=== PATIENT | female | born 1995 | race Caucasian/White ===

== ENCOUNTER 2023-03-04 11:13 | Day surgery (SDC) | payer OTHER ==
[2023-03-03 12:55] VITALS: BMI 21.9
[2023-03-04 13:39] VITALS: RESP 18; TEMP 98
[2023-03-04 13:40] VITALS: BP 98/74; PULSE 95
== END 2023-03-04 13:48 | disposition home or self-care (01) ==
LOC: FASU-ENDO 11:13
PROVIDERS: ATTEND Internal Medicine Gastroenterology
PROC: 0DDL8ZX Extraction of Transverse Colon, Via Natural or Artificial Opening Endoscopic, Diagnostic (ICD-10-PCS; 2023-03-04)
PROC: 0DDN8ZX Extraction of Sigmoid Colon, Via Natural or Artificial Opening Endoscopic, Diagnostic (ICD-10-PCS; 2023-03-04)
PROC: 0DDP8ZX Extraction of Rectum, Via Natural or Artificial Opening Endoscopic, Diagnostic (ICD-10-PCS; 2023-03-04)
PROC: 0DDB8ZX Extraction of Ileum, Via Natural or Artificial Opening Endoscopic, Diagnostic (ICD-10-PCS; 2023-03-04)
PROC: 0DDM8ZX Extraction of Descending Colon, Via Natural or Artificial Opening Endoscopic, Diagnostic (ICD-10-PCS; 2023-03-04)
PROC: 0DDH8ZX Extraction of Cecum, Via Natural or Artificial Opening Endoscopic, Diagnostic (ICD-10-PCS; 2023-03-04)
PROC: 0DDK8ZX Extraction of Ascending Colon, Via Natural or Artificial Opening Endoscopic, Diagnostic (ICD-10-PCS; principal; 2023-03-04 12:20)
DX: Z12.11 Encounter for screening for malignant neoplasm of colon (principal); K52.89 Other specified noninfective gastroenteritis and colitis; K64.0 First degree hemorrhoids; Z87.19 Personal history of other diseases of the digestive system
CPT/HCPCS: 81025; 88305-TC